=== PATIENT | female | born 1970 | race Native Hawaiian/Other Pacific Islander ===

== ENCOUNTER → 2019-12-22 | Outpatient (CLI) | payer OTHER | END | disposition home or self-care (01) | LOC: LABWHC1 10:47 | PROVIDERS: ATTEND Family Medicine | DX: Z03.818 Encounter for observation for suspected exposure to other biological agents ruled out (principal) | CPT/HCPCS: U0003; C9803 ==

== ENCOUNTER 2019-12-29 12:11 | Emergency (ER) | payer OTHER ==
[2019-12-29] MEDS ORDERED: MORPHINE SULFATE 4 MG/ML SYRINGE IV STA (13:04)
[2019-12-29] MEDS ORDERED: SODIUM CHLORIDE 0.9% 1,000 ML IV STA (13:04)
[2019-12-29] MEDS ORDERED: PANTOPRAZOLE 40 MG/10 ML VIAL IVP STA (13:05)
[2019-12-29] MEDS ORDERED: ONDANSETRON 4 MG/2 ML VIAL IVP STA (13:05)
--- NOTE | 2019-12-29 13:05 | ED ---
Headache HPI - General Chief Complaint: Headache Stated Complaint: Headache Time Seen by Provider: 12/29/19 12:41 Source: RN notes reviewed, old records reviewed Mode of arrival: wheelchair Limitations: no limitations - History of Present Illness Initial Comments: this is a 41-year-old female DF for evaluation patient is safe for evaluation of headache. Patient states when she is to be daily drinker she does often get headachesand occasional migraines. No headaches no fevers. No recent trauma no fevers or medication changes no travel history or soak sick contacts MD Complaint: headache, "migraine" -: days(s) Location: frontal Severity: mild Severity scale (1-10): 3 Quality: aching, throbbing Consistency: constant Improves With: nothing Worsens With: none Context: recent URI Associated Symptoms: nausea Treatments Prior to Arrival: none - Related Data Allergies Allergy/AdvReac Type Severity Reaction Status Date / Time No Known Allergies Allergy Verified 12/29/19 12:34 Review of Systems ROS Statement: Those systems with pertinent positive or pertinent negative responses have been documented in the HPI. ROS Other: All systems not noted in ROS Statement are negative. Past Medical History Additional Past Medical History / Comment(s): migraines, ectopic History of Any Multi-Drug Resistant Organisms: None Reported Past Surgical History: Orthopedic Surgery Additional Past Surgical History / Comment(s): finger, Past Psychological History: Bipolar Smoking Status: Never smoker Past Alcohol Use History: None Reported Past Drug Use History: None Reported General Exam Limitations: no limitations General appearance: alert, in no apparent distress Head exam: Present: atraumatic, normocephalic, normal inspection Eye exam: Present: normal appearance, PERRL, EOMI. Absent: scleral icterus, conjunctival injection, periorbital swelling ENT exam: Present: normal exam, mucous membranes moist Neck exam: Present: normal inspection. Absent: tenderness, meningismus, lymphadenopathy Respiratory exam: Present: normal lung sounds bilaterally. Absent: respiratory distress, wheezes, rales, rhonchi, stridor Cardiovascular Exam: Present: regular rate, normal rhythm, normal heart sounds. Absent: systolic murmur, diastolic murmur, rubs, gallop, clicks GI/Abdominal exam: Present: soft, normal bowel sounds. Absent: distended, tenderness, guarding, rebound, rigid Extremities exam: Present: normal inspection, full ROM, normal capillary refill. Absent: tenderness, pedal edema, joint swelling, calf tenderness Back exam: Present: normal inspection Neurological exam: Present: alert, oriented X3, CN II-XII intact Psychiatric exam: Present: normal affect, normal mood Skin exam: Present: warm, dry, intact, normal color. Absent: rash Course Vital Signs 12/29/19 12:30 Temperature 98.9 F Pulse Rate 97 Respiratory 20 Rate Blood Pressure 152/89 O2 Sat by Pulse 99 Oximetry - Reevaluation(s) Reevaluation #1: 12/29/19 14:56 medical records reviewed Reevaluation #2: 12/29/19 14:56 patient feels better here in the ER Reevaluation #3: 12/29/19 14:56 patient informed of findings and questions are answered Medical Decision Making - Medical Decision Making 49 female DF for evaluation patient to the ER for headache. Headache is improved, resolved here in the ER, patient can be discharged home - Lab Data Result diagrams: 12/29/19 13:13 12/29/19 13:13 Lab Results 12/29/19 12/29/19 Range/Units 13:13 13:13 WBC 8.5 (3.8-10.6) k/uL RBC 4.24 (3.80-5.40) m/uL Hgb 13.6 (11.4-16.0) gm/dL Hct 40.2 (34.0-46.0) % MCV 94.7 (80.0-100.0) fL MCH 32.0 (25.0-35.0) pg MCHC 33.8 (31.0-37.0) g/dL RDW 12.4 (11.5-15.5) % Plt Count 264 (150-450) k/uL Neutrophils % 77 % Lymphocytes % 16 % Monocytes % 4 % Eosinophils % 1 % Basophils % 1 % Neutrophils # 6.5 (1.3-7.7) k/uL Lymphocytes # 1.4 (1.0-4.8) k/uL Monocytes # 0.4 (0-1.0) k/uL Eosinophils # 0.1 (0-0.7) k/uL Basophils # 0.1 (0-0.2) k/uL Sodium 135 L (137-145) mmol/L Potassium 4.4 (3.5-5.1) mmol/L Chloride 103 (98-107) mmol/L Carbon Dioxide 26 (22-30) mmol/L Anion Gap 6 mmol/L BUN 16 (7-17) mg/dL Creatinine 0.55 (0.52-1.04) mg/dL Est GFR (CKD-EPI)AfAm >90 (>60 ml/min/1.73 sqM) Est GFR (CKD-EPI)NonAf >90 (>60 ml/min/1.73 sqM) Glucose 132 H (74-99) mg/dL Calcium 9.7 (8.4-10.2) mg/dL Phosphorus 3.9 (2.5-4.5) mg/dL Magnesium 1.8 (1.6-2.3) mg/dL Total Bilirubin 0.5 (0.2-1.3) mg/dL AST 37 H (14-36) U/L ALT 88 H (4-34) U/L Alkaline Phosphatase 112 (38-126) U/L Total Protein 7.1 (6.3-8.2) g/dL Albumin 4.3 (3.5-5.0) g/dL - Radiology Data Radiology results: report reviewed (CT brain negative for acute disease), image reviewed Disposition Clinical Impression: Headache, Migraine headache Disposition: HOME SELF-CARE Condition: Good Instructions (If sedation given, give patient instructions): Acute Headache (ED) Is patient prescribed a controlled substance at d/c from ED?: No Referrals: Carloz Bangura MD [Primary Care Provider] - 1-2 days
[2019-12-29 13:30] LABS: Basophils # (A) 0.1 k/uL (0-0.2); Basophils % (A) 1 %; Eosinophils # (A) 0.1 k/uL (0-0.7); Eosinophils % (A) 1 %; HCT 40.2 % (34.0-46.0); HGB 13.6 gm/dL (11.4-16.0); Lymphocytes # (A) 1.4 k/uL (1.0-4.8); Lymphocytes % (A) 16 %; MCHC 33.8 g/dL (31.0-37.0); MCV 94.7 fL (80.0-100.0); Mean Platelet Volume 7.3; Monocytes # (A) 0.4 k/uL (0-1.0); Monocytes % (A) 4 %; Neutrophils # (A) 6.5 k/uL (1.3-7.7); Neutrophils % (A) 77 %; Platelet Count 264 k/uL (150-450); RBC 4.24 m/uL (3.80-5.40); RDW 12.4 % (11.5-15.5); WBC 8.5 k/uL (3.8-10.6)
[2019-12-29 13:44] LABS: ALT 88 U/L (4-34); AST 37 U/L (14-36); African American GFR (CKD) >90 (>60 ml/min/1.73 sqM); Albumin 4.3 g/dL (3.5-5.0); Alkaline Phosphatase 112 U/L (38-126); Anion Gap 6 mmol/L; Blood Urea Nitrogen 16 mg/dL (7-17); Calcium 9.7 mg/dL (8.4-10.2); Carbon Dioxide 26 mmol/L (22-30); Chloride 103 mmol/L (98-107); Glucose 132 mg/dL (74-99); Magnesium 1.8 mg/dL (1.6-2.3); Non-African American GFR(CKD) >90 (>60 ml/min/1.73 sqM); Phosphorus 3.9 mg/dL (2.5-4.5); Potassium 4.4 mmol/L (3.5-5.1); Sodium 135 mmol/L (137-145); Total Bilirubin 0.5 mg/dL (0.2-1.3); Total Protein 7.1 g/dL (6.3-8.2)
--- NOTE | 2019-12-29 14:06 | CT ---
EXAMINATION TYPE: CT brain wo con DATE OF EXAM: 12/29/2019 COMPARISON: CT brain dated 04/23/2009. HISTORY: severe headache/nausea/vomiting. hx migraines CT DLP: 1055.4 mGycm. Automated Exposure Control for Dose Reduction was Utilized. TECHNIQUE: CT scan of the head is performed without contrast. FINDINGS: There is no acute intracranial hemorrhage, mass effect, or midline shift identified. The ventricles and sulci are within normal limits in size. Lopez-white matter differentiation is maintain ed. The globes are intact and the visualized sinuses are clear. IMPRESSION: No acute intracranial hemorrhage, mass effect, or midline shift is seen. No significant change from prior.
[2019-12-29] MEDS ORDERED: KETOROLAC 15 MG/ML 1 ML VIAL IVP STA (14:29)
[2019-12-29] MEDS ORDERED: diphenhydrAMINE 50 MG/ML 1 ML VIAL IVP STA (14:29)
[2019-12-29 15:28] VITALS: BP 137/99; PULSE 99; RESP 18; TEMP 98.3
== END 2019-12-29 15:27 | disposition home or self-care (01) ==
LOC: EC 12:11
DX: G43.909 Migraine, unspecified, not intractable, without status migrainosus (principal)
CPT/HCPCS: 36415; 80053; 83735; 84100; 85025; 70450; 99284; 96374; 96375 ×3; 96361; J1200; J2405; J1885; C9113

== ENCOUNTER 2020-05-22 07:41 | Inpatient (IN) | payer OTHER ==
[2020-05-22] MEDS ORDERED: HYDROmorphone 0.5 MG/0.5 ML SYRINGE IVP STA (07:43)
[2020-05-22] MEDS ORDERED: DIPH,PERTUS(ACELL)TETVAC-LF 0.5 ML VIAL IM ONE (07:43)
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
[2020-05-22 08:37] LABS: Glucose,Whole Blood 175 mg/dL (75-99)
--- NOTE | 2020-05-22 08:48 | XR ---
EXAMINATION TYPE: XR chest 1V portable DATE OF EXAM: 05/22/2020 COMPARISON: 228 2 HISTORY: Chest pain TECHNIQUE: Single frontal view of the chest is obtained. FINDINGS: There is no focal air space opacity, pleural effusion, or pneumothorax seen. The cardiac silhouette size is within normal limits. The osseous structures are intact. IMPRESSION: 1. No acute process.
--- NOTE | 2020-05-22 08:48 | XR ---
EXAMINATION TYPE: XR pelvis AP view DATE OF EXAM: 05/22/2020 CLINICAL HISTORY: pain TECHNIQUE: Single view the pelvis is submitted. FINDINGS: No evidence for fracture, dislocation or bony lesion. Joint spaces are well-preserved. S I joints appear symmetric. IMPRESSION: 1. No acute fracture or dislocation seen. ICD 10 NO FRACTURE, INITIAL EVALUATION
--- NOTE | 2020-05-22 08:50 | XR ---
EXAMINATION TYPE: XR ankle complete bilateral DATE OF EXAM: 05/22/2020 COMPARISON: NONE HISTORY: Pain TECHNIQUE: Frontal, lateral and oblique images of the right ankle are obtained. COMPARISON: None. FINDINGS: There is no acute fracture/dislocation evident. The joint spaces appear within normal dixon its. The overlying soft tissue appears unremarkable. IMPRESSION: There is no acute fracture or dislocation seen. EXAMINATION TYPE: XR ankle complete bilateral DATE OF EXAM: 05/22/2020 COMPARISON: NONE HISTORY: Pain TECHNIQUE: 3 views of the left ankle are submitted for evaluation. FINDINGS: There is no evidence for fracture or dislocation. Chronic appearing cortical irregularity m edial and lateral malleoli likely indicating healed avulsion fractures. Ankle mortise is intact. Soft tissues are within normal limits. IMPRESSION: 1. No evidence for acute fracture.
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
[2020-05-22 09:30] LABS: Basophils % (A) 0 %; Eosinophils # (A) 0.1 k/uL (0-0.7); Eosinophils % (A) 1 %; HCT 40.7 % (34.0-46.0); HGB 14.1 gm/dL (11.4-16.0); Lymphocytes # (A) 1.8 k/uL (1.0-4.8); Lymphocytes % (A) 18 %; MCH 31.3 pg (25.0-35.0); MCHC 34.7 g/dL (31.0-37.0); MCV 90.4 fL (80.0-100.0); Mean Platelet Volume 8.2; Monocytes # (A) 0.5 k/uL (0-1.0); Monocytes % (A) 5 %; Neutrophils # (A) 7.4 k/uL (1.3-7.7); Neutrophils % (A) 75 %; Platelet Count 264 k/uL (150-450); RDW 12.8 % (11.5-15.5); WBC 9.9 k/uL (3.8-10.6)
[2020-05-22 09:34] LABS: Partial Thromboplastin Time 23.2 sec (22.0-30.0); Prothrombin Time 10.5 sec (9.0-12.0)
[2020-05-22 09:36] LABS: ALT 24 U/L (4-34); AST 33 U/L (14-36); African American GFR (CKD) >90 (>60 ml/min/1.73 sqM); Albumin 4.8 g/dL (3.5-5.0); Alcohol <10 mg/dL; Alkaline Phosphatase 102 U/L (38-126); Anion Gap 12 mmol/L; Blood Urea Nitrogen 17 mg/dL (7-17); Calcium 9.9 mg/dL (8.4-10.2); Carbon Dioxide 20 mmol/L (22-30); Chloride 105 mmol/L (98-107); Glucose 163 mg/dL (74-99); Non-African American GFR(CKD) >90 (>60 ml/min/1.73 sqM); Sodium 137 mmol/L (137-145); Total Bilirubin 0.6 mg/dL (0.2-1.3); Total Protein 7.7 g/dL (6.3-8.2)
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
[2020-05-22] MEDS ORDERED: SODIUM CHLORIDE 0.9% 1,000 ML IV ONE (10:25)
[2020-05-22] MEDS ORDERED: KETOROLAC 15 MG/ML 1 ML VIAL ONE (10:53)
[2020-05-22] MEDS ORDERED: ONDANSETRON 4 MG/2 ML VIAL IVP STA (10:57)
[2020-05-22] MEDS ORDERED: KETOROLAC 15 MG/ML 1 ML VIAL IVP STA (11:03)
[2020-05-22] MEDS ORDERED: NALOXONE 0.4 MG/ML 1 ML VIAL IV PRN (12:21)
[2020-05-22] MEDS ORDERED: ACETAMINOPHEN TAB 325 MG TAB PO PRN (12:21)
[2020-05-22] MEDS: SODIUM CHLORIDE 0.9% 1,000 ML IV SCH ×2 (12:43→20:57)
[2020-05-22] MEDS: HYDROmorphone 0.5 MG/0.5 ML SYRINGE IVP PRN ×2 (12:44→15:58)
[2020-05-22 13:14] LABS: Appearance,Urine Clear (Clear); Bilirubin,Urine Negative (Negative); Blood,Urine Negative (Negative); Color,Urine Yellow; Glucose,Urine (UA) Negative (Negative); Ketones,Urine 1+ (Negative); Leukocyte Esterase,Urine Negative (Negative); Nitrite,Urine Negative (Negative); Protein,Urine Trace (Negative); Urobilinogen,Urine <2.0 mg/dL (<2.0)
[2020-05-22 13:16] LABS: Specific Gravity,Urine >1.050 (1.001-1.035)
[2020-05-22 13:21] LABS: Amphetamine Screen,Urine Not Detected (NotDetected); Barbiturate Screen,Urine Not Detected (NotDetected); Benzodiazepines Screen,Urine Not Detected (NotDetected); Cocaine Screen,Urine Not Detected (NotDetected); Methadone Screen, Urine Not Detected (NotDetected); Opiate Screen,Urine Detected (NotDetected); Oxycodone Screen, Urine Not Detected (NotDetected); Phencyclidine Screen,Urine Not Detected (NotDetected); Tricyclic Antidepressant,Urine Not Detected (NotDetected); Urn Cannabinoid Scrn Detected (NotDetected)
[2020-05-22] MEDS ORDERED: ONDANSETRON 4 MG/2 ML VIAL IVP PRN (14:32)
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
[2020-05-22] MEDS ORDERED: PANTOPRAZOLE 40 MG/10 ML VIAL IVP SCH (14:45)
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
--- NOTE | 2020-05-22 18:21 | XR ---
EXAMINATION TYPE: XR shoulder complete RT DATE OF EXAM: 05/22/2020 COMPARISON: NONE HISTORY: Shoulder pain TECHNIQUE: Review FINDINGS: I see no fracture nor dislocation. There are no pathologic calcifications at the greater tu berosity. Glenohumeral joint space is fairly normal. IMPRESSION: Negative right shoulder exam. No fracture.
--- NOTE | 2020-05-22 18:42 | CT ---
EXAMINATION TYPE: CT lumbar spine w con DATE OF EXAM: 05/22/2020 COMPARISON: 03/21/2009 HISTORY: Back pain CT DLP: mGycm Automated exposure control for dose reduction was used. CONTRAST: Performed , patient injected with mL of . The IV contrast was Isovue 100 mL. Images obtained from the level of T12-S2 3 vertebra with contrast. The vertebra have fairly normal alignment. There is bilateral L5 spondylolysis. There is a few millim eter L5-S1 spondylolisthesis. The disc spaces are fairly well-maintained. There is very slight narrow ing of L4-5 disc. There is no compression fracture. There is no lumbar paraspinal mass. Facet joints are intact. Sacroiliac joints are intact. I see no focal bone destruction. There is developmentally a dequate spinal canal. There is no evidence of spinal stenosis. IMPRESSION: L5 spondylolysis with minimal spondylolisthesis. No significant change compared to old exam. No acute bony abnormality. No acute fracture.
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
[2020-05-22] MEDS: KETOROLAC 15 MG/ML 1 ML VIAL IVP PRN (20:51)
[2020-05-22 23:43] VITALS: RESP 20
[2020-05-23 05:37] VITALS: BP 125/78; TEMP 98
[2020-05-23] MEDS ORDERED: PANTOPRAZOLE 40 MG TABLET PO SCH (08:00)
[2020-05-23] MEDS: KETOROLAC 15 MG/ML 1 ML VIAL IVP PRN (09:46)
[2020-05-23] MEDS ORDERED: OXYBUTYNIN 10 MG TAB.ER.24 PO SCH (10:30)
[2020-05-23] MEDS ORDERED: ARIPiprazole 5 MG TAB PO SCH (10:30)
[2020-05-23 10:38] VITALS: PULSE 128
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
[2020-05-23] MEDS: SODIUM CHLORIDE 0.9% 1,000 ML IV SCH (13:07)
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
--- NOTE | 2020-05-23 21:53 | PN ---
PROGRESS NOTE DATE OF SERVICE: 05/23/2020 CHIEF COMPLAINT: Cervical sprain. HISTORY OF PRESENT ILLNESS: This lady is doing well. She is not having a great deal of difficulty. She has had no headache, shortness of breath, chest pain, abdominal pain, etc. PHYSICAL EXAMINATION: Chest is clear. Cardiac exam is normal. The abdomen is soft and nontender. Neck is a little bit stiff. IMPRESSION: 1. Cervical spine sprain. 2. Contusion of the left upper chest and lower abdomen. PLAN: Increase activity and possibly home today. MMODL / IJN: [id number] /
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
== END 2020-05-23 14:15 | disposition home or self-care (01) | DRG 552 ==
LOC: EC 07:41 → OBSVTOIN 12:53 → 5NMEDONC 12:53
PROVIDERS: ADMIT Surgery; ATTEND Surgery
PROC: 3E0234Z Introduction of Serum, Toxoid and Vaccine into Muscle, Percutaneous Approach (ICD-10-PCS; principal; 2020-05-22)
DX: S16.1XXA Strain of muscle, fascia and tendon at neck level, initial encounter (principal); S09.90XA Unspecified injury of head, initial encounter; F31.9 Bipolar disorder, unspecified; Z20.822 Contact with and (suspected) exposure to COVID-19; S13.4XXA Sprain of ligaments of cervical spine, initial encounter; S60.212A Contusion of left wrist, initial encounter; S60.211A Contusion of right wrist, initial encounter; S80.01XA Contusion of right knee, initial encounter; S90.01XA Contusion of right ankle, initial encounter; S80.02XA Contusion of left knee, initial encounter; M54.5 Low back pain; R07.9 Chest pain, unspecified; Z23 Encounter for immunization; G43.909 Migraine, unspecified, not intractable, without status migrainosus; F90.9 Attention-deficit hyperactivity disorder, unspecified type; N39.3 Stress incontinence (female) (male); Z79.899 Other long term (current) drug therapy; V49.40XA Driver injured in collision with unspecified motor vehicles in traffic accident, initial encounter; Y92.410 Unspecified street and highway as the place of occurrence of the external cause; Z90.79 Acquired absence of other genital organ(s); Z90.721 Acquired absence of ovaries, unilateral; Z87.42 Personal history of other diseases of the female genital tract; Z87.81 Personal history of (healed) traumatic fracture; Z98.890 Other specified postprocedural states; Z81.8 Family history of other mental and behavioral disorders; Z82.49 Family history of ischemic heart disease and other diseases of the circulatory system; Z83.79 Family history of other diseases of the digestive system
CPT/HCPCS: 36415; 70450; 71045; 71260; 72125; 72132; 72141; 72170; 74177; 80053; 80306; 80320; 81003; 84484; 85025; 85610; 85730; 86850; 86900; 86901; 87635; 90471; 90715; 96361; 96374; 96375; 96376; 99291

== ENCOUNTER 2021-08-04 10:56 | Emergency (ER) | payer OTHER ==
[2021-08-04] MEDS ORDERED: ONDANSETRON ODT 4 MG TAB PO STA (11:09)
[2021-08-04 11:22] VITALS: TEMP 98.7
--- NOTE | 2021-08-04 11:23 | ED ---
General Adult HPI - General Chief complaint: Allergic Reaction Stated complaint: Poss allergic reaction Time Seen by Provider: 08/04/21 10:59 Source: patient Mode of arrival: ambulatory Limitations: no limitations - History of Present Illness Initial comments: Patient is a 51-year-old female who presents to the emergency department for possible medication reaction. Patient states she was bit by her neighbors dog 2 days ago and has several wounds from the bites. Patient received medical care at the [facility]. Patient was given [place] for pain. Patient states ever since she started taking [place] she's been nauseous and more angry. Patient is very upset during my evaluation due to her family being at risk of a continuously aggressive dog. Patient seek psychiatric evaluation. She does have homicidal ideation about her neighbors, no plan. No suicidal ideation. She denies fever, chills, shortness of breath, chest pain, abdominal pain, vomiting, or other concerns. Denies recent alcohol use. Admits to marijuana use. Denies other drugs. - Related Data Home Medications Medication Instructions Recorded Confirmed ARIPiprazole [Abilify] 5 mg PO BID 05/22/20 05/22/20 Dextroamphetamine/Amphetamine 30 mg PO BID 05/22/20 05/22/20 [Adderall] Oxybutynin Chloride [Oxybutynin 10 mg PO BID 05/22/20 05/22/20 Chloride ER] Previous Rx's Medication Instructions Recorded Acetaminophen Tab [Tylenol Tab] 650 mg PO Q4H PRN #30 tablet 05/23/20 Ibuprofen [Motrin] 600 mg PO Q8HR PRN #30 tab 05/23/20 Ondansetron Odt [Zofran Odt] 4 mg PO Q8HR PRN #12 tab 08/04/21 Allergies Allergy/AdvReac Type Severity Reaction Status Date / Time beta blockers Allergy Chest Pain Uncoded 08/04/21 11:06 Review of Systems ROS Statement: Those systems with pertinent positive or pertinent negative responses have been documented in the HPI. ROS Other: All systems not noted in ROS Statement are negative. Past Medical History Additional Past Medical History / Comment(s): migraines, stress incontinence History of Any Multi-Drug Resistant Organisms: None Reported Past Surgical History: Orthopedic Surgery Additional Past Surgical History / Comment(s): L salpingo/oophorectomy d/t 2 ectopic pregnancies, L middle finger fracture with hardware, R foot fracture with hardware. Past Anesthesia/Blood Transfusion Reactions: No Reported Reaction Additional Past Anesthesia/Blood Transfusion Reaction / Comment(s): Pt has received blood in past without reaction. Past Psychological History: ADD/ADHD, Bipolar Smoking Status: Never smoker - Past Family History Father Family Medical History: Dementia Additional Family Medical History / Comment(s): Mental illness, pacemaker. Mother Family Medical History: GERD/Reflux Additional Family Medical History / Comment(s): Pancreatitis General Exam Limitations: no limitations General appearance: alert, anxious Head exam: Present: atraumatic, normocephalic, normal inspection Eye exam: Present: normal appearance, PERRL, EOMI. Absent: scleral icterus, conjunctival injection, periorbital swelling Neck exam: Present: normal inspection Respiratory exam: Present: normal lung sounds bilaterally. Absent: respiratory distress, wheezes, rales, rhonchi, stridor Cardiovascular Exam: Present: normal rhythm, tachycardia, normal heart sounds. Absent: systolic murmur, diastolic murmur, rubs, gallop, clicks GI/Abdominal exam: Present: soft, normal bowel sounds. Absent: distended, tenderness, guarding, rebound, rigid Extremities exam: Present: other (Stitches in right posterior hand ) Neurological exam: Present: alert, oriented X3, CN II-XII intact Psychiatric exam: Present: normal affect, anxious Skin exam: Present: warm, dry, intact, other (significant bite sandra with ecchymosis over the right breast ) Course Vital Signs 08/04/21 11:00 Temperature 98.7 F Pulse Rate 118 H Respiratory 20 Rate Blood Pressure 135/96 O2 Sat by Pulse 99 Oximetry Medical Decision Making - Medical Decision Making This is a 51-year-old female who presents for psychiatric evaluation. Thorough history and examination were performed. Patient is anxious and cries during my exam. She does have multiple dog bite wounds with stitches in the right posterior hand. There is no concern for infection. Patient has been very upset and angry due to an incident with the neighbors dog 2 days ago. She is taking [place] which is a new medication to her which could be possibly be aggravating her symptoms. Patient is nauseous from the [place]. I initially ordered Zofran for the nausea however patient told nurse she took one before arriving. Nausea controlled. Alcohol breathalyzer is 0. Patient is cleared medically and can be evaluated by emergency psychiatric services. I spoke with emergency psychiatric services personally. They state patient is safe to go home. Patient will be discharged with nausea medications. They are providing her resources to help with the aggressive dog situation. I did recommend the patient stop taking her [place] and take [id number] Tylenol or Motrin instead. She verbalizes understanding and is agreeable to this plan. Dr. Garcia is my attending. - Lab Data Lab Results 08/04/21 Range/Units 12:26 Urine Opiates Screen Detected H (NotDetected) Ur Oxycodone Screen Detected H (NotDetected) Urine Methadone Screen Not Detected (NotDetected) Ur Propoxyphene Screen Not Detected (NotDetected) Ur Barbiturates Screen Not Detected (NotDetected) U Tricyclic Antidepress Not Detected (NotDetected) Ur Phencyclidine Scrn Not Detected (NotDetected) Ur Amphetamines Screen Detected H (NotDetected) U Methamphetamines Scrn Not Detected (NotDetected) U Benzodiazepines Scrn Not Detected (NotDetected) Urine Cocaine Screen Not Detected (NotDetected) U Marijuana (THC) Screen Detected H (NotDetected) Disposition Clinical Impression: Nausea, Anxiety, Homicidal ideation Disposition: HOME SELF-CARE Condition: Good Instructions (If sedation given, give patient instructions): Anxiety (ED) Additional Instructions: Please take Zofran as directed. It may be a good idea to stop taking the [place] if it is causing you to be more upset and causing nausea. Please use resources provided to help you with the incident regarding your neighbor's dog. Follow-up with primary care provider in one to 2 days. Return to the emergency department if you experience new, concerning, or worsening symptoms. Prescriptions: Ondansetron Odt [Zofran Odt] 4 mg PO Q8HR PRN #12 tab PRN Reason: Nausea Is patient prescribed a controlled substance at d/c from ED?: No Referrals: Carloz Bangura MD [Primary Care Provider] - 1-2 days Time of Disposition: 13:26
[2021-08-04 13:18] LABS: Cocaine Screen,Urine Not Detected (NotDetected); Phencyclidine Screen,Urine Not Detected (NotDetected); Urn Cannabinoid Scrn Detected (NotDetected)
[2021-08-04 13:19] LABS: Amphetamine Screen,Urine Detected (NotDetected); Barbiturate Screen,Urine Not Detected (NotDetected); Benzodiazepines Screen,Urine Not Detected (NotDetected); Methadone Screen, Urine Not Detected (NotDetected); Opiate Screen,Urine Detected (NotDetected); Oxycodone Screen, Urine Detected (NotDetected); Tricyclic Antidepressant,Urine Not Detected (NotDetected)
[2021-08-04 13:57] VITALS: BP 129/88; PULSE 96; RESP 18
== END 2021-08-04 13:57 | disposition home or self-care (01) ==
LOC: EC 10:56
DX: F41.9 Anxiety disorder, unspecified (principal); R45.850 Homicidal ideations; R11.0 Nausea; Z88.8 Allergy status to other drugs, medicaments and biological substances
CPT/HCPCS: 80306; 82075; 99284

== ENCOUNTER → 2023-01-28 | Outpatient (CLI) | payer OTHER ==
--- NOTE | 2023-01-29 16:04 | MM ---
Reason for Exam: Screening (asymptomatic). Baseline mammogram. Patient History: Menarche at age 16. First Full-Term at age 18. Postmenopausal. Maternal aunt had breast cancer, age 60. Risk Values: Audelia 5 year model risk: 0.5%. NCI Lifetime model risk: 4.1%. Prior Study Comparison: Patient's first Mammogram. Tissue Density: The breast tissue is heterogeneously dense. This may lower the sensitivity of mammography. Findings: Analyzed By CAD. Pattern is asymmetric with a focal asymmetry in the upper outer left breast. Postsurgical scar markers within the right breast. There are no comparison images, baseline exam There may be a subtle distortion in the outer left breast on craniocaudal projection slightly 4:00 position. Abdomen on the exaggerated lateral craniocaudal view Compression view recommended for additional evaluation. Overall Assessment: Incomplete: need additional imaging evaluation, BI-RAD 0 Management: Diagnostic Mammogram of the left breast. A negative mammogram report should not preclude additional follow up of suspicious palpable abnormalities. Patient should continue monthly self breast exam. A clinical breast exam by your physician is recommended on an annual basis and results should be correlated with mammographic findings. Electronically signed and approved by: Jose Miguel Montiel D.O. Radiologis
== END | disposition home or self-care (01) ==
LOC: RADMAMWWP 08:15
PROVIDERS: ATTEND Family Medicine
DX: Z12.31 Encounter for screening mammogram for malignant neoplasm of breast (principal); Z78.0 Asymptomatic menopausal state; Z80.3 Family history of malignant neoplasm of breast
CPT/HCPCS: 77063; 77067

== ENCOUNTER → 2023-02-21 | Outpatient (CLI) | payer OTHER ==
--- NOTE | 2023-02-21 14:45 | MM ---
Reason for Exam: Additional evaluation requested from abnormal screening. Last screening mammogram was performed less than 1 month ago. Patient History: Menarche at age 16. First Full-Term at age 18. Postmenopausal. Maternal aunt had breast cancer, age 60. Risk Values: Audelia 5 year model risk: 0.5%. NCI Lifetime model risk: 4.1%. Prior Study Comparison: 01/28/2023 Bilateral MG 3D screening mammo w/cad, [facility]. Tissue Density: Left: There are scattered fibroglandular densities. Findings: Analyzed By CAD. There is no suspicious group of microcalcifications or new suspicious mass. Area of concern/asymmetry compresses out on spot compression imaging within the left breast lateral aspect on CC view.. No suspicious masses, calcifications or distortions. Overall Assessment: Benign, BI-RAD 2 Management: Screening Mammogram of both breasts in 1 year. Results were given to the patient verbally at the time of exam. Patient should continue monthly self-breast exams. A clinical breast exam by your physician is recommended on an annual basis. This exam should not preclude additional follow-up of suspicious palpable abnormalities. Note on Audelia scores and lifetime risk: 1. A Audelia score greater than 3% is considered moderate risk. If this is the case, consider specialist referral to assess eligibility for a risk reducing agent. 2. If overall lifetime risk for the development of breast cancer is 20% or higher, the patient may qualify for future screening with alternating mammogram and breast MRI. Electronically signed and approved by: Lele Dawson DO
== END | disposition home or self-care (01) ==
LOC: RADMAMWWP 13:35
PROVIDERS: ATTEND Family Medicine
DX: R92.322 Mammographic fibroglandular density, left breast (principal); Z78.0 Asymptomatic menopausal state; Z80.3 Family history of malignant neoplasm of breast
CPT/HCPCS: 77065; G0279; 77061